=== PATIENT | female | born 1960 | race African-American/Black ===

== ENCOUNTER → 2017-05-22 16:40 | Outpatient (CLI) | payer MEDICARE, OTHER | END | disposition home or self-care (01) | LOC: D.MAMMO 05-19 13:30 | DX: Z12.31 Encounter for screening mammogram for malignant neoplasm of breast (principal) ==

== ENCOUNTER 2019-07-07 06:20 | Day surgery (SDC) | payer MEDICARE, OTHER ==
[~2019-07-07] VITALS: Ht 170.2 cm; Wt 76.7 kg
[~2019-07-07 06:20] MED LIST: GLUCOPHAGE500 MG PO; HCTZ25 MG PO; HYDROCODON-ACE1 EA10 PO; LINZESS145 MCG PO; MOBIC7.5 MG PO; NEURONTIN 300300 MG PO; NEXIUM40 MG PO; ULTRAM50 MG PO; ZANAFLEX4 MG PO; ZOCOR40 MG PO
[2019-07-07 06:49] LABS: HEMATOCRIT 41.1 % (36.0-48.0); HEMOGLOBIN 13.7 g/dL (12-16); MCHC 33.3 g/dL (31.0-37.0); MEAN PLATELET VOLUME 9.9 fL (7.4-10.4); RBC 4.42 10x6/uL (4.00-5.40); RDW 14.2 % (11.5-14.5); WBC 9.7 10x3/uL (4.8-10.8)
[2019-07-07] MEDS ORDERED: ALBUTEROL0.63 MG/3 INH (07:14)
[2019-07-07 07:20] LABS: CALC OSMOLALITY 290 mosm/kg (275-300); CALCIUM 9.3 mg/dL (8.5-10.1); CARBON DIOXIDE 28.2 mmol/L (21.0-32.0); CHLORIDE - SERUM 107 mmol/L (98-107); CREATININE - SERUM 0.6 mg/dL (0.6-1.3); GLUCOSE 186 mg/dL (74-106); POTASSIUM - SERUM 3.7 mmol/L (3.5-5.1); SODIUM 144 mmol/L (136-145); UREA NITROGEN 11 mg/dL (7-18); eGFR NON AFRICAN AMERICAN > 90 mL/min (90-120)
[2019-07-07 07:49] VITALS: BP 120/68; Ht 170.2 cm; Wt 76.7 kg
[2019-07-07] MEDS ORDERED: HYDROCODON-ACE1 EA10 PO (11:35)
--- NOTE | 2019-07-07 13:38 | NUR ---
1330-DISCHARGE CRITERIA MET. REMOVED IV FROM LEFT HAND WITH CATH INTACT,DISPOSED INTO SHAPRS,COVERED SITE WITH BANDAID. REVIEWED POST OPERATIVE INSTRUCTIONS WITH PT AND SISTER.VERBALIZED UNDERSTANDING. ESCORTED OUT VIA W/C WITH SISTER AWAITING TO DRIVE HOME.STABLE,BANDAGE WITH SMALL AMOUNT OF BLOOD UNDER GUAZE.
--- NOTE | 2019-08-12 09:47 | OP ---
PATIENT NAME: ANDI NAVAS MEDICAL RECORD: [id number] :58 LOCATION:D.OPS ADMISSION DATE: SURGEON: PATRICIA SWEET MD DATE OF OPERATION: 07/07/2019 SURGEON: Patricia Sweet MD PREOPERATIVE DIAGNOSIS: Lumbar spinal stenosis with disc herniation at L4-L5 on the right. POSTOPERATIVE DIAGNOSIS: Lumbar spinal stenosis with disc herniation at L4-L5 on the right. PROCEDURES: Lumbar laminotomy, medial facetectomy and foraminotomy and discectomy at L4-L5 on the right. REFERRING PHYSICIAN: Pao DESCRIPTION OF TECHNIQUE: After induction of general endotracheal anesthesia, the patient was rolled prone on the Armando frame. Lumbar spine was prepped and draped in usual sterile fashion. Fluoroscopic x-ray and spinal needle localized the L4-L5 interspace on the right side. A series of dilators were used to advance a MET[employer] retractor at L4-L5 on the right. Level was confirmed with fluoroscopic x-ray. A microscope and Midas Dipak drill were used to perform laminotomy, medial facetectomy and foraminotomy at L4-L5 on the right. Hypertrophied ligamentum flavum was removed with Cloward rongeurs. There was an obvious disc herniation within the axilla of the right L5 nerve root. This was removed with pituitary rongeurs. Further fragments were removed from the canal. Following this, the L5 nerve root was decompressed completely. TRANSINT:[id number] Voice Confirmation ID: [id number] DOCUMENT ID: [id number] PATRICIA SWEET MD at [id number] CC: [id number] DICTATION DATE: 07/28/19623 NURSING TECH: 07/28/1945 [facility] 07/07/19 [id number] [place] [address]
== END 2019-07-07 13:30 | disposition home or self-care (01) ==
LOC: D.OPS 06:20 → D.PAN 10:00 → D.OPS 13:30
PROVIDERS: Anesthesiology; ATTEND Neurological Surgery
DX: M51.26 Other intervertebral disc displacement, lumbar region (principal)